=== PATIENT | female | born 1970 | race Caucasian/White ===

== ENCOUNTER 2021-07-25 05:58 | Day surgery (SDC) | payer SELFPAY ==
[~2021-07-25] VITALS: Ht 162.6 cm; Wt 66.1 kg
[~2021-07-25 05:58] MED LIST: ALLE180T33 PO; BACL5TAB2 PO; VITMTA PO
[2021-07-25] MEDS ORDERED: ceFAZolin SOD 2 GM in IV 1 EA IV ONE (06:00)
[2021-07-25] MEDS ORDERED: LR 1,000 ML IV ONE (06:00)
[2021-07-25] MEDS ORDERED: LIDOCAINE 1% MDV 20ML VIAL SQ PRN (06:00)
[2021-07-25] MEDS ORDERED: EMLA CREAM 5GM TUBE (LIDOCAINE/PRILOCAINE) TOP PRN (06:00)
[2021-07-25] MEDS ORDERED: EMLA CREAM 5GM TUBE (LIDOCAINE/PRILOCAINE) As Ordered ONE (07:08)
[2021-07-25] MEDS ORDERED: LIDOCAINE 1% MDV 20ML VIAL As Ordered ONE (07:12)
[2021-07-25] MEDS ORDERED: GENTAMICIN SULF 80MG/2ML VIAL As Ordered ONE ×2 (07:12→09:06)
[2021-07-25] MEDS ORDERED: BUPIVACAINE LIPOSOME/PF 1.3% 20ML VIAL (13.3MG/ML)(EXPAREL) As Ordered ONE (07:13)
[2021-07-25] MEDS ORDERED: EPINEPHrine INJ 1 MG/ML 1ML AMP As Ordered ONE (07:13)
[2021-07-25] MEDS ORDERED: SCOPOLAMINE 1MG TRANSDERMAL PATCH TOP ONE (07:20)
[2021-07-25] MEDS ORDERED: fentaNYL 250 MCG/5 ML INJECTION As Ordered ONE (07:24)
[2021-07-25] MEDS ORDERED: propofoL 200 MG/20 ML VIAL As Ordered ONE (07:24)
[2021-07-25] MEDS ORDERED: dexameTHASONE 4 MG/ML 1ML VIAL (J1100 PER 1MG) As Ordered ONE (07:24)
[2021-07-25] MEDS ORDERED: MIDAZOLAM INJ 2MG/2ML VIAL (J2250 PER 1MG) As Ordered ONE (07:24)
[2021-07-25] MEDS ORDERED: LIDOCAINE 2% 100MG/5ML SDV (FOR ANES.) As Ordered ONE (07:24)
[2021-07-25] MEDS ORDERED: LACRILUBE (AKWA TEARS) OPHTH OINT 3.5 GM As Ordered ONE (07:54)
[2021-07-25] MEDS ORDERED: LIDOCAINE 5% OINT 30GM TUBE As Ordered ONE (07:54)
[2021-07-25] MEDS ORDERED: ACETAMINOPHEN 1000MG 100ML IV BTL (OFIRMEV) (J0131 PER 10MG) As Ordered ONE (08:07)
[2021-07-25] MEDS ORDERED: GLYCOPYRROLATE INJ 0.2 MG/ML 2 ML VIAL As Ordered ONE (08:08)
[2021-07-25] MEDS ORDERED: ePHEDrine SULFATE 25 MG/5 ML(5MG/ML) SYRINGE As Ordered ONE (09:07)
[2021-07-25] MEDS ORDERED: HYDROmorphone HCL 2MG/ML 1ML VIAL As Ordered ONE (09:27)
[2021-07-25] MEDS ORDERED: ONDANSETRON 4MG/2ML VIAL As Ordered ONE (09:55)
[2021-07-25] MEDS ORDERED: OXYC1TAB23 PO (10:28)
[2021-07-25] MEDS ORDERED: oxyCODONE 5MG TAB PO PRN (10:45)
[2021-07-25] MEDS ORDERED: ONDANSETRON 4MG/2ML VIAL IV PRN (10:45)
[2021-07-25] MEDS ORDERED: fentaNYL 100 MCG/2 ML INJECTION IV PRN (10:45)
[2021-07-25] MEDS ORDERED: HYDROMORPHONE HCL 0.5 MG/ 0.5 ML SYRINGE (J1170 PER 1) IV PRN (10:45)
[2021-07-25] MEDS ORDERED: LR 1,000 ML IV SCH (10:45)
[2021-07-25 14:00] VITALS: BP 114/71
== END 2021-07-25 16:23 | disposition home or self-care (01) ==
LOC: M SDC 05:58 → EDUNIT# 11:45 → M SDC 16:23
PROVIDERS: ATTEND Plastic Surgery Surgery of the Hand
DX: N64.82 Hypoplasia of breast (principal); Z98.84 Bariatric surgery status; F43.10 Post-traumatic stress disorder, unspecified; F41.9 Anxiety disorder, unspecified; J45.909 Unspecified asthma, uncomplicated; G47.33 Obstructive sleep apnea (adult) (pediatric); Z88.5 Allergy status to narcotic agent; Z79.899 Other long term (current) drug therapy
CPT/HCPCS: 15877; 19325; C9290; J0131; J0171; J0690; J1100; J1170; J1580; J2250; J2405; J3010; L8600